=== PATIENT | male | born 1940 | race Caucasian/White ===

== ENCOUNTER 2016-09-19 20:28 | Inpatient (IN) | payer OTHER ==
--- NOTE | ~2016-09-19 | CN ---
Consultation Report [facility] [address] [place]. [address] NAME: STEPH CHAVARRIA : 38 STATUS : ADM IN PAT#: [id number] AGE: 76 ADM/REG DATE : 09/19/16 MR#: [id number] REPORT SERV DATE: 09/20/16 DICTATED BY: JOAN CONTRERAS DATE: 09/20/16 REPORT STATUS : Draft TRANSCRIBED BY: MODL DATE: 09/20/16 NEUROLOGY CONSULTATION DATE OF CONSULTATION: 09/20/2016 REASON FOR CONSULTATION: Seizure. HOSPITALIST: Candida Pittman M.D. HISTORY OF PRESENT ILLNESS: The patient is a 76-year-old male, who had a seizure episode yesterday evening. This occurred at approximately 6 p.m. According to the patient's , the patient was seated and was just about to start eating his dinner. The looked over to her right just in time to see the patient become unresponsive and start to have tonic- clonic activity. According to the , the patient's activity was generalized. She noticed that his lips turned blue. He sees for approximately four to five minutes, and she called 911. The ambulance arrived, and the patient was postictal. The patient does not recall any of this. He does remember waking up on the ambulance. After his seizure-type activity, it is reported that he was very drowsy and confused (postictal). When questioned about this event, the patient mentions that he has never had seizure-like activity and he has never had any history of head injury or stroke. He states that he has always been very healthy. He mentions that he feels fine and he wants to get home, so he can go back to work. PAST MEDICAL HISTORY: Hypertension, GERD, hyperlipidemia, history of tobacco abuse, depression, and insomnia. When questioned more extensively, the patient mentions he has a history of depression, he was placed on Abilify approximately two years ago by his PCP, Dr. Corona. PAST SURGICAL HISTORY: None. HOME MEDICATION LIST: Includes Norvasc 10 mg daily, Abilify 2 mg at bedtime, aspirin 81 mg daily, chlorthalidone 50 mg daily, Nexium 40 mg daily, Prinivil 40 mg twice a day, Mobic 7.5 mg daily, a multivitamin daily, Klor-Con 10 mEq daily, and Zocor 40 mg daily. ALLERGIES: NONE. SOCIAL HISTORY: The patient is . He and has have four children total. 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 He is a former smoker. Does not drink alcohol or use illicit drugs. FAMILY HISTORY: The patient's mother of stomach cancer. He has no history on his father. He has three sisters, who are healthy. REVIEW OF SYSTEMS: Consultation Report [address] [place]. [address] NAME: STEPH CHAVARRIA : 38 STATUS : ADM IN [facility]#: [id number] AGE: 76 ADM/REG DATE : 09/19/16 MR#: [id number] REPORT SERV DATE: 09/20/16 DICTATED BY: JOAN CONTRERAS DATE: 09/20/16 REPORT STATUS : Draft TRANSCRIBED BY: VARSHA DATE: 09/20/16 For pertinent positives, please see HPI. PHYSICAL EXAMINATION: VITAL SIGNS: The patient is a 76-year-old male, who is slightly febrile with a temperature of 99 degrees, heart rate 80, respiratory rate 14, O2 saturations on 2 L nasal cannula are 93%, blood pressure 93/54. He stands 5 feet 10 inches tall and weighs 178 pounds. NEURO: The patient is awake. He is alert. He is oriented x4. Communicates appropriately. Speech is clear. Language is fluent. Pupils are 3 mm, PERRLA. Vision via confrontation is normal in both frank. No cranial nerve deficits. [id number] reveals no ataxia. Heel- to-victoria, no ataxia. There is no drift. No pronator drift, asterixis, or tremor. Upper extremity strength is a 5/5. Unable to elicit DTRs in the upper extremities. No reported sensory deficits. Lower extremity strength is a 4/5 bilaterally. No patellar reflexes. Plantar is silent. No reported sensory deficits in the lower extremities. NECK: No carotid bruits, JVD, or thyromegaly. CHEST: Lung sounds are clear. CARDIAC: Regular rate and rhythm. LABORATORY DATA: CBC is normal. BMP shows a potassium of 3.0, magnesium 1.07. Troponin is 0.02 and 0.05 consecutively. TSH is normal. Chest x-ray, bibasilar atelectasis. CT of the chest, excessive coronary calcification, cardiac silhouette mildly enlarged, aneurysmal changes to the ascending aorta and a nodule in the upper portion of the right lung, recommend followup CT in six months. CT of the brain, mild ventriculomegaly; however, the patient does have some atrophy. ASSESSMENT/PLAN: Generalized tonic-clonic seizure, first time, not intractable most likely, etiology is unknown. The patient will undergo an MRI of the brain with and without gadolinium and an MRA of the head and neck with gadolinium. The patient will also have an EEG. He will be on seizure precautions. An echocardiogram is being done at the bedside. Additional lab work will be ordered. The patient will be placed on Keppra 1000 mg IV every 12 hours. His Abilify will be discontinued since this can potentiate seizure activity. He will be placed on Lexapro 10 mg daily. Lastly, the patient has difficulty with sleep. He does experience some insomnia. He will be sent for an outpatient sleep study upon discharge. Thank you again for including us in consultation. We will continue to follow with you. BELLA/VARSHA DANIEL Thomson-TETE / [id number] Consultation Report [address] [address] NAME: STEPH CHAVARRIA : 38 STATUS : ADM IN [facility]#: [id number] AGE: 76 ADM/REG DATE : 09/19/16 MR#: [id number] REPORT SERV DATE: 09/20/16 DICTATED BY: JOAN CONTRERAS DATE: 09/20/16 REPORT STATUS : Draft TRANSCRIBED BY: VARSHA DATE: 09/20/16 CC: Mayra Talavera M.D.
--- NOTE | ~2016-09-19 | CN ---
Consultation Report [facility] [address] [place]. [address] NAME: STEPH ROWE : 38 STATUS : ADM IN PAT#: [id number] AGE: 76 ADM/REG DATE : 09/19/16 MR#: [id number] REPORT SERV DATE: 09/22/16 DICTATED BY: DATE: REPORT STATUS : Draft TRANSCRIBED BY: MODL DATE: 09/22/16 CONSULTATION DATE OF CONSULTATION: 09/22/2016 REASON FOR CONSULTATION: Carotid stenosis with left carotid plaque/ulceration. HISTORY OF PRESENT ILLNESS: Vascular has been consulted for evaluation of carotid stenosis with findings of left internal carotid artery ulcerative plaque. Mr. Rowe is a pleasant 76-year-old male, who was recently admitted to the hospital after new onset of seizure activity. He was reportedly eating dinner two days ago with no complaints. Without warning, he loss consciousness, and began to convulse with seizure-like activity reportedly by his . This activity went on for approximately ten minutes. Afterwards, the patient was unresponsive, pale, and having blue lips. His called the EMS and they arrived shortly thereafter, taking him to the ER. The patient denies loss of bowel or bladder function. No chest pain or shortness of breath. No headache. No abdominal pain. During his ER evaluation, he was found to have carotid stenosis with this questionable ulcerative plaque in his left internal carotid artery. The patient denies previous history of carotid disease. No previous history of stroke. He has never had a carotid ultrasound done before. He also denies family history of stroke. No amaurosis fugax. Denies extremity weakness or paresthesias. No dysphagia. PAST MEDICAL HISTORY: 1. Hypertension. 2. Hyperlipidemia. 3. GERD. 4. Osteoarthritis. 5. Depression. 6. History of tobacco abuse. 7. Insomnia. SURGICAL HISTORY: The patient denies past surgical history. FAMILY MEDICAL HISTORY: Significant for mother, who of stomach cancer as reported before. No previous history of stroke or seizures in his family. SOCIAL HISTORY: The patient has a previous history of tobacco abuse. He quit smoking approximately forty years ago. He denies alcohol and illicit drug use and has been for thirty two years. ALLERGIES: NO KNOWN DRUG ALLERGIES. CURRENT MEDICATIONS: Norvasc, Abilify, aspirin 81 mg, chlorthalidone, Nexium, lisinopril, Mobic, daily multivitamin, potassium, and Zocor. Consultation Report [facility] [address] [place]. [address] NAME: STEPH ROWE : 38 STATUS : ADM IN PAT#: [id number] AGE: 76 ADM/REG DATE : 09/19/16 MR#: [id number] REPORT SERV DATE: 09/22/16 DICTATED BY: DATE: REPORT STATUS : Draft TRANSCRIBED BY: MODL DATE: 09/22/16 REVIEW OF SYSTEMS: 14-point review of systems was obtained. Pertinent positives included in the history of present illness. All others negative. PHYSICAL EXAMINATION: VITAL SIGNS: Blood pressure 146/92, O2 saturation 94% on room air, oral temperature 98.2, pulse 75, respirations 18. GENERAL: The patient is alert and oriented, in no apparent distress, and resting quietly. HEENT: Head is atraumatic and normocephalic. Face is symmetric. EOMs intact. Nares are patent. Mucous membranes are pink and moist. NECK: No JVD. Trachea is midline. No carotid bruits noted. RESPIRATORY: Respirations are even and nonlabored. Breath sounds clear to auscultation throughout. CARDIOVASCULAR: Heart rate and rhythm regular. No murmurs, rubs, or gallops. ABDOMEN: Soft, nontender, nondistended. No pulsatile masses or abdominal bruits. Bowel sounds active x4. EXTREMITIES: [place], warm, and dry. No edema. Pedal pulses are easily palpable bilaterally. NEURO: A and O x4, alert, and answering questions appropriately. Biogeographer are equal. Strength is 5/5 throughout. PSYCH: Appropriate mood and affect. IMAGING: MRA of the neck with contrast done on the shows large ulcerative plaque within the left internal carotid artery mid section. There appears to be luminal stenosis estimated between 60% and 70%. The right carotid artery appears normal with no significant disease. ASSESSMENT AND PLAN: 1. Carotid stenosis with left internal carotid artery ulcerative plaque. 2. New onset seizure activity. The patient is scheduled for a CTA of his head and neck, which hopefully will be done in the next 2 to 3 hours. He is asymptomatic from a vascular standpoint and it is hard to say exactly what his degree of stenosis is bilaterally, hope with the CTA we will help shed light on this. Should he have less than 70% stenosis on either side, we will follow him on an outpatient basis. If his stenosis is greater than 70% seen on the ulcerative plaques side, then would recommend endovascular intervention, however this could be done on an outpatient basis as he is asymptomatic in regards to his vascular disease. We will continue to follow the patient for now and make further decisions regarding his treatment plan, after review of his CTA. The patient verbalized understanding of the plan. Thank you for this kind consultation. CS/MODL Consultation Report [facility] [address] [address] NAME: STEPH ROWE : 38 STATUS : ADM IN PAT#: [id number] AGE: 76 ADM/REG DATE : 09/19/16 MR#: [id number] REPORT SERV DATE: 09/22/16 DICTATED BY: DATE: REPORT STATUS : Draft TRANSCRIBED BY: VARSHA DATE: 09/22/16 Maria R Chi NP / [id number] CC: Mayra Fonseca M.D.
--- NOTE | ~2016-09-19 | HP ---
History And Physical [address] [address] NAME: STEPH CHAVARRIA : 38 STATUS : ADM IN [facility]#: [id number] AGE: 76 ADM/REG DATE : 09/19/16 MR#: [id number] REPORT SERV DATE: 09/20/16 DICTATED BY: JEREMIE FERRO DATE: 09/20/16 REPORT STATUS : Draft TRANSCRIBED BY: MODL DATE: 09/20/16 DATE OF ADMISSION: 09/19/2016 CHIEF COMPLAINT: This is a 76-year-old male presenting with convulsions with loss of consciousness. HISTORY OF PRESENT ILLNESS: The patient's history was obtained through careful interview with the patient and . The patient apparently has almost no medical history. He has been treated for hypertension, but has really had no other major medical issues or complaints. The patient was eating dinner and feeling in normal health without any recent illness, when without any warning, he suddenly lost consciousness and began to have convulsions and seizure like activity as his describes it. For about 10 minutes, the patient was slumped over on the floor, unresponsive, breathing hard, with blue lips and a pale discoloration, and having on convulsion like activity and shaking uncontrollably. Finally, the EMS arrived, and shortly thereafter, the patient began to come out of this seizure/convulsion like episode. He was confused and unable to speak for a period of time and the first thing that the patient remembers is waking up on the ambulance. There is no loss of bowel or bladder continence. No choking or biting of the tongue. No chest pain. No shortness of breath after this event. No headache. No lower back pain. No abdominal pain. No leg pain. REVIEW OF SYSTEMS: Otherwise, I went through a 14-point review of system that was negative including a negative review of systems for stroke. Otherwise, including no double vision, no dysarthria, no confusion, no vertigo, no hemiparesis, no gait disturbance. PAST MEDICAL HISTORY: 1. Hypertension. 2. No cardiac disease. 3. No lung disease. PAST SURGICAL HISTORY: Denies any. ALLERGIES: NO KNOWN DRUG ALLERGIES. SOCIAL HISTORY: Quit smoking about 40 years ago. No alcohol abuse. Has been to his History And Physical [address] [address] NAME: STEPH CHAVARRIA : 38 STATUS : ADM IN PAT#: [id number] AGE: 76 ADM/REG DATE : 09/19/16 MR#: [id number] REPORT SERV DATE: 09/20/16 DICTATED BY: JEREMIE FERRO DATE: 09/20/16 REPORT STATUS : Draft TRANSCRIBED BY: VARSHA DATE: 09/20/16 for 32 years. He has three children, many grandchildren, many great grandchildren. 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 FAMILY HISTORY: Mother of stomach cancer. Father is unknown to him. Three sisters are all healthy. No known family history of heart disease or stroke. CURRENT MEDICATIONS: Include Norvasc 10 mg p.o. daily, Abilify 2 mg p.o. daily, aspirin 81 mg p.o. daily, chlorthalidone 15 mg daily, Nexium 40 mg p.o. daily, lisinopril 40 mg p.o. b.i.d. (although he stopped taking this medication recently), Mobic 7.5 mg p.o. daily, multivitamin daily, potassium 10 mEq p.o. daily, Zocor 40 mg p.o. daily. PHYSICAL EXAMINATION: VITAL SIGNS: Temperature 96.9, pulse 146, blood pressure 146/71, respiratory rate 18, O2 saturation 94% on room air. GENERAL: A pleasant, cooperative male. No evidence of acute distress at this time. HEENT: Pupils equal, round, and reactive to light. No conjunctival pallor. No scleral icterus. Nares are patent. Oropharynx is clear of obstruction. Mildly dry mucous membranes. NECK: Trachea midline. No thyromegaly. LYMPH: No cervical lymphadenopathy. No supraclavicular lymphadenopathy. RESPIRATORY: Clear to auscultation at bases. No wheezes, rales, or rhonchi. Normal respiratory effort. CARDIOVASCULAR: Tachycardic. Regular rhythm. No murmurs, rubs, or gallops. No extremity edema is appreciated. ABDOMEN: Soft, nontender, nondistended. Normal bowel sounds auscultated throughout. No hepatosplenomegaly. EXTREMITIES: Warm and dry extremities. No pallor. No cyanosis. PSYCHIATRIC: Normal affect. Good mood. Alert and oriented x3. LABORATORY DATA: White blood cell count 11.8 with a normal differential, hemoglobin 14, hematocrit 41, platelets 340. Sodium 138, potassium 2.7, chloride 100, bicarb 21, BUN 18, creatinine 1.30 from baseline creatinine of 1.0, glucose 176. Brain natriuretic peptide 20. Troponin negative. INR 1.1. STUDIES: 1. Chest x-ray by my own evaluation shows no acute cardiopulmonary process. 2. EKG by my own evaluation shows sinus rhythm, first-degree AV block, right bundle branch block. 3. CT scan of the brain without contrast shows no acute intracranial process. 4. CT angiogram of the chest shows no pulmonary embolism. There is an ectatic slight ascending thoracic aortic aneurysm with a maximum area of 4.6 cm2. ASSESSMENT AND PLAN: 1. Seizures versus convulsions. Question whether this is a primary neurological condition versus an episode induced by some cardiac event (?). Check an EEG. Obtain a Neurology consult. I am not starting any specific anti-seizure medication at this time, but we History And Physical [address] [address] NAME: STEPH CHAVARRIA : 38 STATUS : ADM IN PAT#: [id number] AGE: 76 ADM/REG DATE : 09/19/16 MR#: [id number] REPORT SERV DATE: 09/20/16 DICTATED BY: JEREMIE FERRO DATE: 09/20/16 REPORT STATUS : Draft TRANSCRIBED BY: VARSHA DATE: 09/20/16 will monitor initially in the IMCU. 2. New right bundle branch block, but no chest pain. Check an echocardiogram. Check telemetry. Consider stress test (?). 3. Severe hypokalemia. We will hold chlorthalidone. Replace potassium. Check magnesium. 4. Acute kidney injury. Hold chlorthalidone and place on IV fluids. 5. Ascending thoracic aortic aneurysm. Check an echocardiogram to begin further evaluation. KPL/MODL Jeremie Ferro M.D. / [id number] CC: Mayra Talavera M.D.
--- NOTE | ~2016-09-19 | EEG ---
Electroencephalogram [facility] [id number] [place]. [address] NAME: STEPH CHAVARRIA : 38 STATUS : ADM IN PAT#: [id number] AGE: 76 ADM/REG DATE : 09/19/16 MR#: [id number] REPORT SERV DATE: 09/21/16 DICTATED BY: STEPH VIEIRA DATE: 09/21/16 REPORT STATUS : Draft TRANSCRIBED BY: MODL DATE: 09/21/16 ELECTROENCEPHALOGRAPHY REPORT ORDERING PHYSICIAN: Alexx Miranda M.D. INTERPRETING PHYSICIAN: Steph Vieira MD. EEG NUMBER: [id number]. LOCATION OF THE PATIENT: [facility], bed 9. REASONS FOR EEG: Possible seizures. 23 surface electrodes, 10-20 international placement was used. Video monitoring was utilized. The patient was noted to be awake and drowsy throughout the study. Photic stimulation was performed. Brief periods of light sleep were recorded. The background activity consisted of moderate to higher voltage 8-9 cycles per second located in the posterior head regions. Intermittent slower frequencies in the theta range were noted scattered throughout during drowsiness. Photic stimulation did not produce a driving response. The patient's communication analyst showed widened QRS complex. Heart rate of approximately 76 beats per minute, (?)pacemaker artifact. During light sleep, increase of slower frequencies were observed. No paroxysmal or epileptiform activity was noted during this study. IMPRESSION: THIS EEG APPEARS TO BE DIFFUSELY, SLIGHTLY SLOW. NO PAROXYSMAL OR EPILEPTIFORM ACTIVITY WAS SEEN DURING THIS RECORDING. CLINICAL CORRELATION IS RECOMMENDED. CAS/VARSHA Steph Vieira MD / [id number] CC: Mayra Keith M.D.
--- NOTE | ~2016-09-19 | DS ---
Discharge Summary [facility] [address] [place]. [address] NAME: STEPH CHAVARRIA : 38 STATUS : ADM IN [facility]#: [id number] AGE: 76 ADM/REG DATE : 09/19/16 MR#: [id number] REPORT SERV DATE: 09/23/16 DICTATED BY: MIREILLE GOOD DATE: 09/23/16 REPORT STATUS : Draft TRANSCRIBED BY: MODL DATE: 09/23/16 ADMISSION DATE: 09/20/2016 DISCHARGE DATE: 09/23/2016 FINAL HOSPITAL DIAGNOSES: 1. Seizure. 2. Ascending thoracic aneurysm. 3. Acute kidney injury, resolved. 4. Hypertension. 5. Hypokalemia, resolved. CONSULTATIONS: Neurology and Vascular Surgery. PROCEDURES: 1. Echocardiogram done on 09/20/2016 showing EF of 65%, mild left ventricular diastolic dysfunction, no significant valvular dysfunction noted, right ventricular systolic function intact. 2. EEG done on 09/21/2016 showing diffusely slightly slow, no paroxysmal or epileptiform activity was seen during this recording. 3. CT of the brain done on 09/19/2016 showing atrophy, ventricular discrepancy and size. 4. CT of the chest showing coronary calcification in the LAD circumflex, ramus intermedius, aneurysmal changes of the ascending aorta, 2 cm above the aortic annulus, dimensions are 4.8 x 4.6, emphysema noted, moderately severe, nodule right lower lobe 3 x 5 mm, recommended followup in 6 to 12 months. 5. CTA of the brain showing no aneurysm, no vessel cut off, brachiocephalic demonstrates moderate stenosis left internal carotid 50% to 69%, right carotid vertebrals and subclavians are normal. 6. MRI of the brain done on 09/20/2016 showing generalized atrophy, moderately severe, mid brain also atrophied, question possibility of Parkinson's or Parkinson's variant, no acute infarction or bleed. Normal intracranial MRA. MRA of the neck showing ulcerative plaque and category 2 stenosis left internal carotid. CURRENT PHYSICAL FINDINGS AND HPI: Please see initial dictated H and P by Dr. Miranda. In brief, the patient is a 76-year-old male, who presented with compulsions, loss of consciousness, felt to have had a seizure. Vital signs at the time of admission, BP was 146/71, temperature was 96.9, procalcitonin was less than 0.05. Initial BMP showed a potassium of 2.7 this was corrected, troponins were 0.02 and 0.05. B12, folate were within normal limits. TSH was 0.593. A1c was 5.9, white count was 11.8, no significant anemia. HOSPITAL COURSE: The patient was admitted. He was initially admitted to the [facility] for seizure risk. Home medications reviewed and ordered appropriately. EEG was ordered. Echocardiogram was ordered and Neurology consultation was requested. The patient had no further seizure activity and was transferred out of the [facility]. He was seen by Neurology and placed on Keppra and Ativan p.r.n. Above studies and labs were ordered. The patient underwent said exams, was noted to have abnormal findings including ascending thoracic aneurysm, which was felt to be asymptomatic and not related to his episode, lung nodule and Discharge Summary [address] [address] NAME: STEPH CHAVARRIA : 38 STATUS : ADM IN [facility]#: [id number] AGE: 76 ADM/REG DATE : 09/19/16 MR#: [id number] REPORT SERV DATE: 09/23/16 DICTATED BY: MIREILLE GOOD DATE: 09/23/16 REPORT STATUS : Draft TRANSCRIBED BY: VARSHA DATE: 09/23/16 carotid stenosis. Additional evaluation was requested. In the interim, Neurology did place him on seizure medications. He underwent evaluation and consultation by Vascular Surgery. It is felt surveillance only on the category 2 carotid disease. I did discuss with him the importance of followup, concerning his aneurysm and his lung nodule. Also, discussed this with the patient's . He was offered inpatient Cardiothoracic Surgery consultation, but preferred to see them outpatient since there is no suspected genetic component to his aneurysm since he was not having pain, signs of dissection of the aneurysm. Morphology was not described as saccular and his echocardiogram was within normal limits and he was under the 5 cm threshold. It was felt reasonable for him to have outpatient evaluation; however, again the importance of followup was stressed to him. He also understands the need for followup on the lung nodule on the CT and he is agreeable to following up with Vascular outpatient for surveillance of the carotid disease. DISPOSITION: He is discharged home. MEDICATIONS: Norvasc 10, aspirin 325, Mobic 7.5, Keppra 1000 b.i.d., multivitamin one per day, Nexium 40, Zocor 40, potassium 10, Prinivil 40 b.i.d., chlorthalidone, Abilify 2 mg. He will also follow up with his Neurology. TLF/MODL Mireille Good M.D. / [id number] CC: Mayra Keith M.D.
[2016-09-19 18:43] LABS: BASOPHILS 0.7 %; BASOPHILS ABSOLUTE 0.08 10/3/uL (0.0-0.16); EOSINOPHILS 4.5 %; EOSINOPHILS ABSOLUTE 0.53 10/3/uL (0.0-0.53); ER CBC TAT 0 Hrs 08 Mins; HEMATOCRIT 41.4 % (40.0-51.0); HEMOGLOBIN 14.2 g/dL (13.6-17.8); IMMATURE GRANULOCYTES 0.4 %; IMMATURE GRANULOCYTES ABSOLUTE 0.05 10/3/uL (0.0-0.11); LYMPHOCYTES 38.8 %; LYMPHOCYTES ABSOLUTE 4.59 10/3/uL (0.67-4.30); MEAN CORPUS HGB CONC 34.3 g/dL (32.0-36.0); MEAN CORPUSCULAR HEMOGLOB 29.5 pg (26.0-34.0); MEAN CORPUSCULAR VOLUME 85.9 fL (80-100); MEAN PLATELET VOLUME 9.6 fL (9.2-13.0); MONOCYTES 10.4 %; MONOCYTES ABSOLUTE 1.23 10/3/uL (0.21-1.20); NEUTROPHILS 45.2 %; NEUTROPHILS ABSOLUTE 5.35 10/3/uL (2.02-8.40); PLATELET COUNT 340 10/3/uL (150-400); RBC DISTRIBUTION WIDTH 13.9 % (12.0-16.0); RED CELL COUNT 4.82 10/6/uL (4.7-6.1); WHITE BLOOD CELLS 11.8 10/3/uL (4.5-10.5)
[2016-09-19 18:49] LABS: MANUAL DIFF NO %
[2016-09-19 18:51] LABS: INTERNATIONAL NORMAL RATI 1.1 UNITS (-); PARTIAL THROMBO TIME 27.5 SEC (22.5-37.2); PROTIME (NOT ORD) 13.7 SEC (12.0-14.5)
[2016-09-19 18:59] LABS: BUN (BLOOD UREA NITROGEN) 18 MG/DL (6-23); CALCIUM, SERUM 9.8 MG/DL (8.5-10.4); CHEST PAIN PROFILE TAT 0 Hrs 24 Mins; CHLORIDE, SERUM 100 MMOL/L (96-112); GFR AFRICAN AMERICAN 61 ML/MIN (>=60); GFR NON AFRICAN AMERICAN 52 ML/MIN (>=60); SODIUM, SERUM 138 MMOL/L (135-148); TROPONIN I <0.02 NG/ML (<0.05)
[2016-09-19 19:01] LABS: CO2 (CARBON DIOXIDE) 21 MMOL/L (24-34); GLUCOSE, SERUM 175 MG/DL (60-99); POTASSIUM, SERUM 2.7 MMOL/L (3.5-5.3)
[2016-09-19 19:12] LABS: BAND NEUTROPHILS 2 %; EOSINOPHILS 6 %; EOSINOPHILS ABSOLUTE (CALC) 0.71 10/3/uL (0.0-0.53); ER DIFF TAT 0 Hrs 37 Mins; LYMPHOCYTES 35 %; LYMPHOCYTES ABSOLUTE (CALC) 4.13 10/3/uL (0.67-4.30); MONOCYTES 8 %; MONOCYTES ABSOLUTE (CALC) 0.94 10/3/uL (0.21-1.20); NEUTROPHILS ABSOLUTE (CALC) 6.02 10/3/uL (2.02-8.40); PLATELET ESTIMATE ADQ (ADEQUATE); SEGMENTED NEUTROPHIL (0) 49 %; TOTAL NUCLEATED CELLS 100
[~2016-09-19 20:28] MED LIST: CHLORTHALID50 MG PO; KLOR-CON M1010 MEQ PO; LISINOPRIL40 MG PO; NEXIUM40 PO; NORV10 PO
[2016-09-19] MEDS ORDERED: MULTIVIT/MIN (20:29)
[2016-09-19] MEDS ORDERED: HALF81 PO (20:30)
[2016-09-19] MEDS ORDERED: ZOCOR40 PO (20:30)
[2016-09-19] MEDS ORDERED: MOBIC7.5 PO (20:30)
[2016-09-19] MEDS ORDERED: ABILIFY2 PO (20:31)
[2016-09-19 23:08] LABS: A/G RATIO 1.1 (0.7-1.9); ALBUMIN 3.7 G/DL (3.5-5.0); ALKALINE PHOSPHATASE 72 U/L (45-117); BUN (BLOOD UREA NITROGEN) 16 MG/DL (6-23); CALCIUM, SERUM 8.9 MG/DL (8.5-10.4); CHLORIDE, SERUM 100 MMOL/L (96-112); CREATININE 1.07 MG/DL (0.70-1.30); GFR AFRICAN AMERICAN 77 ML/MIN (>=60); GFR NON AFRICAN AMERICAN 66 ML/MIN (>=60); GLOBULIN 3.5 G/DL (2.5-4.1); POTASSIUM, SERUM 3.1 MMOL/L (3.5-5.3); SGOT(AST) 28 U/L (5-40); SGPT(ALT) 31 U/L (5-65); SODIUM, SERUM 138 MMOL/L (135-148); TOTAL BILIRUBIN 0.6 MG/DL (0-1.2); TOTAL PROTEIN 7.2 G/DL (6.0-8.5)
[2016-09-19 23:09] LABS: CO2 (CARBON DIOXIDE) 26 MMOL/L (24-34); GLUCOSE, SERUM 137 MG/DL (60-99)
[2016-09-20 05:44] LABS: BASOPHILS 0.3 %; BASOPHILS ABSOLUTE 0.03 10/3/uL (0.0-0.16); EOSINOPHILS 0.5 %; EOSINOPHILS ABSOLUTE 0.06 10/3/uL (0.0-0.53); HEMATOCRIT 38.7 % (40.0-51.0); HEMOGLOBIN 13.5 g/dL (13.6-17.8); IMMATURE GRANULOCYTES 0.2 %; IMMATURE GRANULOCYTES ABSOLUTE 0.02 10/3/uL (0.0-0.11); LYMPHOCYTES 16.7 %; LYMPHOCYTES ABSOLUTE 1.87 10/3/uL (0.67-4.30); MEAN CORPUS HGB CONC 34.9 g/dL (32.0-36.0); MEAN CORPUSCULAR HEMOGLOB 29.6 pg (26.0-34.0); MEAN CORPUSCULAR VOLUME 84.9 fL (80-100); MEAN PLATELET VOLUME 9.1 fL (9.2-13.0); MONOCYTES 11.7 %; MONOCYTES ABSOLUTE 1.31 10/3/uL (0.21-1.20); NEUTROPHILS 70.6 %; NEUTROPHILS ABSOLUTE 7.92 10/3/uL (2.02-8.40); PLATELET COUNT 263 10/3/uL (150-400); RBC DISTRIBUTION WIDTH 13.7 % (12.0-16.0); RED CELL COUNT 4.56 10/6/uL (4.7-6.1); WHITE BLOOD CELLS 11.2 10/3/uL (4.5-10.5)
[2016-09-20 05:45] LABS: MANUAL DIFF NO %
[2016-09-20 05:56] LABS: INTERNATIONAL NORMAL RATI 1.1 UNITS (-); PROTIME (NOT ORD) 14.4 SEC (12.0-14.5)
[2016-09-20 06:05] LABS: ALBUMIN 3.3 G/DL (3.5-5.0); ALKALINE PHOSPHATASE 62 U/L (45-117); BUN (BLOOD UREA NITROGEN) 13 MG/DL (6-23); CALCIUM, SERUM 8.9 MG/DL (8.5-10.4); CHLORIDE, SERUM 103 MMOL/L (96-112); CO2 (CARBON DIOXIDE) 27 MMOL/L (24-34); CREATININE 1.04 MG/DL (0.70-1.30); GFR AFRICAN AMERICAN 79 ML/MIN (>=60); GFR NON AFRICAN AMERICAN 68 ML/MIN (>=60); GLOBULIN 3.3 G/DL (2.5-4.1); SGOT(AST) 31 U/L (5-40); SGPT(ALT) 29 U/L (5-65); SODIUM, SERUM 140 MMOL/L (135-148); TOTAL BILIRUBIN 0.5 MG/DL (0-1.2); TOTAL PROTEIN 6.6 G/DL (6.0-8.5)
[2016-09-20 06:33] LABS: GLUCOSE, SERUM 99 MG/DL (60-99)
[2016-09-20 06:34] LABS: TROPONIN I 0.05 NG/ML (<0.05); ULTRASENSITIVE TSH 0.593 MCIU/ML (0.358-3.740)
[2016-09-20 14:45] LABS: PROCALCITONIN <0.05 ng/mL (<0.5)
[2016-09-20 14:58] LABS: CHOL/HDL RATIO(NOT ORDER) 2.8 (0-5); CHOLESTEROL 137 MG/DL (< 200); HDL CHOLESTEROL 49 MG/DL (> 39); NON-HDL CHOLESTEROL 88 MG/DL (< 160); T4 (THYROXINE) TOTAL 9.1 MCG/DL (4.5-12.0)
[2016-09-20 14:59] LABS: FOLATE 34.2 NG/ML (>5.2); LDL CHOLESTEROL 68 MG/DL (< 130); TRIGLYCERIDE 101 MG/DL (< 150)
[2016-09-20 20:47] LABS: GLYCOHEMOGLOBIN (HbA1c) 5.9 % (4.7-6.1)
[2016-09-21 07:14] LABS: BUN (BLOOD UREA NITROGEN) 15 MG/DL (6-23); CALCIUM, SERUM 8.7 MG/DL (8.5-10.4); CHLORIDE, SERUM 105 MMOL/L (96-112); CO2 (CARBON DIOXIDE) 28 MMOL/L (24-34); CREATININE 0.92 MG/DL (0.70-1.30); GFR AFRICAN AMERICAN 92 ML/MIN (>=60); GFR NON AFRICAN AMERICAN 79 ML/MIN (>=60); GLUCOSE, SERUM 97 MG/DL (60-99); POTASSIUM, SERUM 3.1 MMOL/L (3.5-5.3); SODIUM, SERUM 142 MMOL/L (135-148)
[2016-09-22 05:42] LABS: BUN (BLOOD UREA NITROGEN) 13 MG/DL (6-23); CALCIUM, SERUM 9.3 MG/DL (8.5-10.4); CHLORIDE, SERUM 103 MMOL/L (96-112); CO2 (CARBON DIOXIDE) 29 MMOL/L (24-34); CREATININE 0.88 MG/DL (0.70-1.30); GFR AFRICAN AMERICAN 95 ML/MIN (>=60); GFR NON AFRICAN AMERICAN 82 ML/MIN (>=60); GLUCOSE, SERUM 110 MG/DL (60-99); POTASSIUM, SERUM 3.3 MMOL/L (3.5-5.3); SODIUM, SERUM 140 MMOL/L (135-148)
[2016-09-23 04:59] LABS: CALCIUM, SERUM 9.1 MG/DL (8.5-10.4); CHLORIDE, SERUM 102 MMOL/L (96-112); CO2 (CARBON DIOXIDE) 30 MMOL/L (24-34); CREATININE 0.87 MG/DL (0.70-1.30); GFR AFRICAN AMERICAN 96 ML/MIN (>=60); GFR NON AFRICAN AMERICAN 83 ML/MIN (>=60); GLUCOSE, SERUM 93 MG/DL (60-99); SODIUM, SERUM 140 MMOL/L (135-148)
[2016-09-23 05:04] LABS: BUN (BLOOD UREA NITROGEN) 17 MG/DL (6-23); POTASSIUM, SERUM 3.7 MMOL/L (3.5-5.3)
[2016-09-23] MEDS ORDERED: KEPPRA1000 MG PO (16:29)
[2016-09-23] MEDS ORDERED: ASABAYER PO (17:28)
== END 2016-09-23 17:41 | disposition home or self-care (01) | DRG 101 ==
LOC: ER 20:28 → IMCU 20:31 → 4SO 09-20 16:35
PROVIDERS: Emergency Medicine; Hospitalist; Internal Medicine; Nurse Practitioner
DX: G40.409 Other generalized epilepsy and epileptic syndromes, not intractable, without status epilepticus (principal); N17.9 Acute kidney failure, unspecified; I71.2 Thoracic aortic aneurysm, without rupture; I65.22 Occlusion and stenosis of left carotid artery; J44.9 Chronic obstructive pulmonary disease, unspecified; I10 Essential (primary) hypertension; Z87.891 Personal history of nicotine dependence; Z79.82 Long term (current) use of aspirin; I45.10 Unspecified right bundle-branch block; E87.6 Hypokalemia; K21.9 Gastro-esophageal reflux disease without esophagitis; E78.5 Hyperlipidemia, unspecified; F32.9 Major depressive disorder, single episode, unspecified; G47.00 Insomnia, unspecified; R91.1 Solitary pulmonary nodule; M19.90 Unspecified osteoarthritis, unspecified site
CPT/HCPCS: 70450; 70496; 70498; 70544; 70548; 70553; 71010; 71250; 80048; 80053; 80061; 82140; 82306; 82533; 82607; 82746; 83036; 83735; 83880; 84132; 84145; 84436; 84439; 84443; 84480; 84484; 85025; 85610; 85730; 87641; 93005; 93306; 95819; 96365; 96367; 96375; 99291; A9270-GY; J1953; J2405; Q9967